=== PATIENT | female | born 1990 | race Two or more races ===

== ENCOUNTER 2023-09-26 17:53 | Emergency (ER) | payer OTHER ==
[~2023-09-26] VITALS: Ht 162.6 cm; Wt 65.8 kg
[2023-09-26] MEDS ORDERED: LIPITOR20 MG PO (18:58)
== END 2023-09-26 22:07 | disposition home or self-care (01) ==
LOC: ER 17:53
DX: B37.31 Acute candidiasis of vulva and vagina (principal)

== ENCOUNTER 2024-01-15 09:39 | Outpatient (CLI) | payer OTHER ==
[~2024-01-15 09:39] MED LIST: LIPITOR20 MG PO
== END 2024-01-15 09:46 | disposition home or self-care (01) ==
LOC: RAD 09:39
PROVIDERS: ATTEND Physical Medicine & Rehabilitation
DX: M25.511 Pain in right shoulder (principal); M25.561 Pain in right knee; M25.562 Pain in left knee; M25.572 Pain in left ankle and joints of left foot

== ENCOUNTER 2024-03-11 09:53 | Outpatient (CLI) | payer OTHER | END 2024-03-11 10:06 | disposition home or self-care (01) | LOC: MRI 09:53 | PROVIDERS: ATTEND Physical Medicine & Rehabilitation | DX: M25.511 Pain in right shoulder (principal); M75.101 Unspecified rotator cuff tear or rupture of right shoulder, not specified as traumatic | CPT/HCPCS: 73218 ==

== ENCOUNTER 2025-01-29 10:51 | Outpatient (CLI) | payer OTHER | END 2025-01-29 10:52 | disposition home or self-care (01) | LOC: PRENATAL 10:51 | PROVIDERS: ATTEND Obstetrics & Gynecology Maternal & Fetal Medicine | DX: Z76.1 Encounter for health supervision and care of foundling (principal) ==

== ENCOUNTER 2025-02-19 08:18 | Outpatient (CLI) | payer OTHER | END 2025-02-19 08:19 | disposition home or self-care (01) | LOC: PRENATAL 08:18 | PROVIDERS: ATTEND Obstetrics & Gynecology Maternal & Fetal Medicine | DX: O44.00 Complete placenta previa NOS or without hemorrhage, unspecified trimester (principal); Z14.8 Genetic carrier of other disease; Z3A.19 19 weeks gestation of pregnancy ==